=== PATIENT | male | born 1950 | race Caucasian/White ===

== ENCOUNTER 2017-02-05 05:21 | Emergency (ER) | payer OTHER ==
[2017-02-05] MEDS ORDERED: SODIUM CHLORIDE 0.9% FLUSH 10 ML SOL IV PRN (05:31)
[2017-02-05] MEDS ORDERED: NITROGLYCERIN 0.4 MG TAB SL PRN (05:31)
[2017-02-05 05:36] LABS: BASOPHILS % (AUTO) 2 % (0-3); EOSINOPHILS % (AUTO) 7 % (0-9); HEMATOCRIT 42 % (39-53); MEAN CORPUSCULAR HGB CONC 34.2 gm/dl (32.0-36.0); MEAN CORPUSCULAR VOLUME 82 fL (80-100); MONOCYTES % (AUTO) 11.4 % (0-12); NEUTROPHILS % (AUTO) 47.1 % (37-80)
[2017-02-05 05:53] LABS: CALCIUM 8.9 mg/dl (8.5-10.1); GLOM FILT RATE 46 mL/min (>60); SODIUM 141 mMol/L (136-145)
[2017-02-05 05:54] LABS: POTASSIUM 2.7 mMol/L (3.5-5.1)
[2017-02-05] MEDS ORDERED: SODIUM CHLORIDE/KCL 20MEQ 1,000 ML IV ONE ×2 (05:57→06:02)
[2017-02-05] MEDS ORDERED: POTASSIUM CHLORIDE 10 MEQ TER ONE ×2 (06:00→08:43)
[2017-02-05] MEDS: POTASSIUM CHLORIDE 10 MEQ TER PO SCH ×3 (06:02→12:00)
[2017-02-05 08:07] VITALS: TEMP 97.7
[2017-02-05 10:56] LABS: CALCIUM 8.9 mg/dl (8.5-10.1); POTASSIUM 3.2 mMol/L (3.5-5.1)
[2017-02-05] MEDS ORDERED: HEPARIN SODIUM 5000 U/ML SOL IV ONE (11:16)
[2017-02-05] MEDS ORDERED: HEPARIN PREMIX 25,000 U/250 ML SOL IV PRN (11:21)
[2017-02-05] MEDS ORDERED: HEPARIN SODIUM 5000 U/ML SOL ONE (11:25)
[2017-02-05] MEDS ORDERED: METOPROLOL TARTRATE 25 MG TAB PO ONE (11:30)
[2017-02-05] MEDS ORDERED: METOPROLOL TARTRATE 25 MG TAB ONE (11:41)
[2017-02-05 12:12] VITALS: BP 101/79; PULSE 60; RESP 12; O2SAT 99
== END 2017-02-05 12:01 | disposition short-term general hospital (02) | DRG 282 ==
LOC: ED 05:21
DX: I21.4 Non-ST elevation (NSTEMI) myocardial infarction (principal); E87.6 Hypokalemia
CPT/HCPCS: 36415; 71010; 80048; 82550; 84484; 85025; 85610; 85730; 93005; 96365; 96374; 99284; 99285; J1644

== ENCOUNTER 2019-01-05 09:32 | Day surgery (SDC) | payer OTHER ==
[2019-01-05] MEDS ORDERED: BUPIVACAINE HCL 0.25% MPF 30 ML SOL INFIL ONE (10:33)
[2019-01-05] MEDS ORDERED: DEXAMETHASONE SOD PHOS PF 10 MG/ML SOL IJ ONE (10:33)
[2019-01-05 11:07] VITALS: PULSE 73; RESP 12; TEMP 97.9; O2SAT 95
[2019-01-05 11:20] VITALS: BP 127/89
== END 2019-01-05 11:32 | disposition home or self-care (01) | DRG 552 ==
LOC: SURG 09:32
PROVIDERS: ATTEND Nurse Anesthetist, Certified Registered
DX: M51.17 Intervertebral disc disorders with radiculopathy, lumbosacral region (principal)
CPT/HCPCS: J1100

== ENCOUNTER 2019-02-16 11:33 | Day surgery (SDC) | payer OTHER ==
[2019-02-16] MEDS ORDERED: DEXAMETHASONE SOD PHOS PF 10 MG/ML SOL IJ ONE (12:20)
[2019-02-16] MEDS ORDERED: BUPIVACAINE HCL 0.25% MPF 30 ML SOL INFIL ONE (12:20)
[2019-02-16 12:55] VITALS: BP 116/77; PULSE 60; RESP 16; TEMP 97.2; O2SAT 94
== END 2019-02-16 13:09 | disposition home or self-care (01) | DRG 552 ==
LOC: SURG 11:33
PROVIDERS: ATTEND Nurse Anesthetist, Certified Registered
DX: M48.062 Spinal stenosis, lumbar region with neurogenic claudication (principal)
CPT/HCPCS: J1100